=== PATIENT | female | born 1995 | race Caucasian/White ===

== ENCOUNTER 2021-03-06 03:03 | Observation (INO) ==
--- NOTE | 2021-03-13 15:04 | Discharge Summary (DS) ---
DATE OF ADMISSION: 03/06/2021 DATE OF DISCHARGE: 03/06/2021 REASON FOR ADMISSION AND HOSPITAL COURSE: The patient is a 25-year-old female, G2, P___, at 34 weeks and 5 days, here to check rupture of membranes. The patient states that she noticed a gush of fluid and a small trickle. She did not wear a pad or any fluid noted on her pants. She has had back stacey n, occasional [place] contractions. She denies vaginal bleeding. Good movement noted by patient. The patient was placed on the monitor. No active contractions. fibronectin was perf ormed, which was negative. heart tones were category 1. The patient was stable and was discha rged home. Homegoing instructions were given. Condition on discharge is stable. Regular diet on discharge. Followup will be in the office in 1 sol[address]ita. Job ID: [id number]
== END 2021-03-06 05:30 | disposition home or self-care (01) ==
LOC: OPB 03:03 → 4S1 03:03